=== PATIENT | female | born 1990 | race Two or more races ===

== ENCOUNTER 2020-12-04 11:26 | Emergency (ER) | payer SELFPAY ==
[~2020-12-04] VITALS: Ht 154.9 cm; Wt 80.7 kg
--- NOTE | 2020-12-04 11:58 | NUR ---
FIRST CONTACT WITH PT: . LMP 10/17. Vaginal bleeding since Thursday. C/o cramps in the morning. PT STATES SHE HAS BEEN HAVING MEDIUM SIZED BLOOD CLOTS. PT WITH STEADY GAIT FROM BATHROOM TO BED. POSTIONED TO COMFORT. ATTACHED TO MONITORS. VSS. UNDERWOOD.
[2020-12-04 12:24] LABS: MICROSCOPIC INDICATED
[2020-12-04 12:53] LABS: BASOPHILS % (AUTO) 1 % (0-1); EOSINOPHILS % (AUTO) 4 % (1-7); LYMPHOCYTES % (AUTO) 26 % (22-44); MEAN CORPUSCULAR HEMOGLOBIN 28.6 pg (27.0-34.8); MEAN CORPUSCULAR HGB CONC 33.6 g/dL (32.4-35.8); MEAN PLATELET VOLUME 9.3 fL (7.4-10.4); MONOCYTES % (AUTO) 8 % (2-9); NEUTROPHILS % (AUTO) 61 % (42-75); PLATELET COUNT 361 x10^3/uL (130-400); RED CELL DISTRIBUTION WIDTH 14.3 % (9.6-15.2)
[2020-12-04 13:04] LABS: ALBUMIN 3.3 g/dL (3.4-5.0); ANION GAP 3 mmol/L (5-15); CALCIUM 9.1 mg/dL (8.5-10.1); CHLORIDE 108 mmol/L (98-107); CREATININE 0.52 mg/dL (0.55-1.02)
--- NOTE | 2020-12-04 13:26 | NUR ---
PT TO . VSS. UNDERWOOD.
--- NOTE | 2020-12-04 14:13 | NUR ---
DR. FREIRE AT BEDSIDE DISCUSSING RESULTS. VSS. UNDERWOOD.
[2020-12-04 14:35] VITALS: BP 104/74
--- NOTE | 2020-12-04 14:58 | NUR ---
Patientgiven discharge instructions and they have confirmed that they understand the instructions. Patient ambulatory with steady gait. NAD, all questions answered appropriately, denies additional needs at this time. No personal belongings left in room after discharge.
== END 2020-12-04 14:59 | disposition home or self-care (01) ==
LOC: ED 11:58
DX: O20.0 Threatened abortion (principal); Z3A.01 Less than 8 weeks gestation of pregnancy
CPT/HCPCS: 36415; 76830; 80048; 81001; 82040; 84702; 85025; 86901; 87086; 87147; 99284